=== PATIENT | female | born 1940 | race Caucasian/White ===

== ENCOUNTER 2023-10-22 08:24 | Day surgery (SDC) | payer MEDICARE, SELFPAY | END 2023-10-22 11:10 | disposition home or self-care (01) | LOC: CATH 08:24 | PROVIDERS: ATTENDING PHYSICIAN Internal Medicine; FAMILY PHYSICIAN Family Medicine; OTHER PHYSICIAN Internal Medicine Cardiovascular Disease | DX: I48.0 Paroxysmal atrial fibrillation (principal); I10 Essential (primary) hypertension; I35.0 Nonrheumatic aortic (valve) stenosis; Z79.01 Long term (current) use of anticoagulants; E78.5 Hyperlipidemia, unspecified | CPT/HCPCS: 92960; 93005 ==

== ENCOUNTER → 2023-12-15 08:51 | Outpatient (REF) | payer MEDICARE, SELFPAY | LOC: WDC 08:51 | PROVIDERS: ATTENDING PHYSICIAN Family Medicine | DX: Z12.31 Encounter for screening mammogram for malignant neoplasm of breast (principal) | CPT/HCPCS: 77063; 77067 ==

== ENCOUNTER → 2024-02-24 10:25 | Outpatient (REF) | payer MEDICARE, SELFPAY | LOC: RCS 10:25 | PROVIDERS: ATTENDING PHYSICIAN Internal Medicine Cardiovascular Disease; FAMILY PHYSICIAN Family Medicine | DX: I48.0 Paroxysmal atrial fibrillation (principal); I35.0 Nonrheumatic aortic (valve) stenosis | CPT/HCPCS: 93306 ==

== ENCOUNTER → 2024-05-24 11:35 | Outpatient (REF) | payer MEDICARE, SELFPAY ==
[2024-05-24 12:34] LABS: Blood Urea Nitrogen 22 mg/dl (7-17); Carbon Dioxide 28 mmol/L (22-30); Chloride 100 mmol/L (98-107); Glucose 92 mg/dl (70-99); Potassium 4.2 mmol/L (3.5-5.1); Sodium 141 mmol/L (135-145); eGFR 48.94
== END ==
LOC: REG 11:35
PROVIDERS: ATTENDING PHYSICIAN Family Medicine
DX: N18.31 Chronic kidney disease, stage 3a (principal)
CPT/HCPCS: 36415; 80048

== ENCOUNTER → 2024-06-02 10:30 | Outpatient (REF) | payer MEDICARE, SELFPAY ==
[2024-06-02 11:56] LABS: Blood Urea Nitrogen 21 mg/dl (7-17); Calcium 9.9 mg/dl (8.4-10.2); Carbon Dioxide 31 mmol/L (22-30); Chloride 99 mmol/L (98-107); Glucose 90 mg/dl (70-99); Potassium 4.3 mmol/L (3.5-5.1); Sodium 139 mmol/L (135-145); eGFR 48.94
[2024-06-03 16:53] LABS: Thyroglobulin Antibodies <0.9 IU/mL (0.0-4.0); Thyroid Peroxidase Ab (TPO) 0.3 IU/mL (0.0-9.0)
== END ==
LOC: REG 10:30
PROVIDERS: ATTENDING PHYSICIAN Family Medicine
DX: N18.31 Chronic kidney disease, stage 3a (principal); T46.2X1A Poisoning by other antidysrhythmic drugs, accidental (unintentional), initial encounter; E03.2 Hypothyroidism due to medicaments and other exogenous substances
CPT/HCPCS: 36415; 80048; 86376; 86800

== ENCOUNTER → 2024-06-15 10:18 | Outpatient (REF) | payer MEDICARE, SELFPAY ==
[2024-06-15 12:26] LABS: Blood Urea Nitrogen 30 mg/dl (7-17); Calcium 9.6 mg/dl (8.4-10.2); Carbon Dioxide 28 mmol/L (22-30); Chloride 100 mmol/L (98-107); Glucose 88 mg/dl (70-99); Potassium 4.1 mmol/L (3.5-5.1); Sodium 140 mmol/L (135-145); eGFR 40.05
[2024-06-17 18:39] LABS: Thyroglobulin Antibodies <0.9 IU/mL (0.0-4.0); Thyroid Peroxidase Ab (TPO) 0.7 IU/mL (0.0-9.0)
== END ==
LOC: REG 10:18
PROVIDERS: ATTENDING PHYSICIAN Family Medicine; OTHER PHYSICIAN Internal Medicine Cardiovascular Disease
DX: N18.31 Chronic kidney disease, stage 3a (principal); T46.2X1A Poisoning by other antidysrhythmic drugs, accidental (unintentional), initial encounter; E03.2 Hypothyroidism due to medicaments and other exogenous substances
CPT/HCPCS: 36415; 80048; 86376; 86800

== ENCOUNTER → 2024-09-28 12:05 | Outpatient (REF) | payer MEDICARE, SELFPAY | LOC: HWRAD 12:05 | PROVIDERS: ATTENDING PHYSICIAN Family Medicine | DX: M25.511 Pain in right shoulder (principal) | CPT/HCPCS: 73030 ==

== ENCOUNTER → 2024-12-20 11:03 | Outpatient (REF) | payer MEDICARE, SELFPAY | LOC: WDC 11:03 | PROVIDERS: ATTENDING PHYSICIAN Family Medicine | DX: Z12.31 Encounter for screening mammogram for malignant neoplasm of breast (principal) | CPT/HCPCS: 77063; 77067 ==

== ENCOUNTER → 2024-12-29 14:05 | Outpatient (REF) | payer MEDICARE, SELFPAY | LOC: HWRAD 14:05 | PROVIDERS: ATTENDING PHYSICIAN Internal Medicine; FAMILY PHYSICIAN Family Medicine; REFERRING PHYSICIAN Internal Medicine Cardiovascular Disease | DX: I83.892 Varicose veins of left lower extremity with other complications (principal) | CPT/HCPCS: 93971 ==

== ENCOUNTER → 2025-02-07 08:58 | Outpatient (REF) | payer MEDICARE, SELFPAY | LOC: RAD 08:58 | PROVIDERS: ATTENDING PHYSICIAN Internal Medicine; FAMILY PHYSICIAN Family Medicine | DX: M85.89 Other specified disorders of bone density and structure, multiple sites (principal); M51.362 Other intervertebral disc degeneration, lumbar region with discogenic back pain and lower extremity pain; M54.16 Radiculopathy, lumbar region | CPT/HCPCS: 72110; 77080 ==

== ENCOUNTER → 2025-05-16 08:57 | Outpatient (REF) | payer MEDICARE, SELFPAY | LOC: RCS 08:57 | PROVIDERS: ATTENDING PHYSICIAN Internal Medicine Cardiovascular Disease; FAMILY PHYSICIAN Nurse Practitioner Adult Health | DX: I48.0 Paroxysmal atrial fibrillation (principal); I35.0 Nonrheumatic aortic (valve) stenosis | CPT/HCPCS: 93306 ==